=== PATIENT | female | born 1950 | race Caucasian/White ===

== ENCOUNTER 2016-12-01 09:06 | Emergency (ER) | payer MEDICARE, OTHER ==
--- NOTE | ~2016-12-01 | CT71 ---
[facility] A Service of [facility] & [facility] RADIOLOGY TEXT RESULTS PATIENT: ARIADNE CHAPPELL LOCATION: [facility] : 48 UNIT #: [id number] AGE: [address]: Maksim Omalley MD SEX: F ORDER DR: [id number] [facility] [address] [place], [place] [address] [id number] E MR#: [id number] #: [id number] NAME: ARIADNE CHAPPELL : 1950 SEX: F STUDY DATE/TIME: 12/01/2016 9:51 UNIT: [facility] ROOM: STUDY DESCRIPTION: CT Head Wo Contrast Attending Physician: Maksim Omalley M.D. Ordering Physician: Maksim Omalley M.D. Primary Care Physician: Raffi Holt M.D. MEDICAL IMAGING REPORT This report is preliminary unless electronic signature is present EXAM CT head, 12/01/2016. HISTORY No loss of consciousness. Laceration right top of head. Fell this a.m. Left knee pain. TECHNIQUE CT head performed skull base through vertex without intravenous contrast. This CT exam was performed with one or more of the following radiation dose reduction techniques: automatic exposure control, adjustment of mA and/or kV according to patient size, and iterative reconstruction. COMPARISON 11/07/2012 FINDINGS Brainstem remarkable. 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 No acute-appearing cerebellar abnormality. The cerebral hemispheres show no indication of acute hemorrhage or acute cortical ischemia. Encephalomalacic change in the posteromedial left temporal lobe and occipital lobe consistent with remote vascular insult. Similar appearance on prior study. Periventricular and deep white matter tract, probable sequelae of chronic microvascular ischemia. Focal area of encephalomalacic change superior aspect right putamen extending into the right watts radiata. No change. There is no clearly acute basal ganglia abnormality. The midline structures are nondisplaced. The ventricles, cisterns, and sulci show moderate generalized enlargement consistent with moderate generalized atrophy. Extensive cavernous carotid arterial calcifications. The intraorbital soft tissues show no acute abnormality. The visualized paranasal sinuses and mastoid air cells are clear. No fracture. Soft tissue laceration right anterior frontoparietal scalp. It [facility] A Service of [facility] & [facility] RADIOLOGY TEXT RESULTS PATIENT: ARIADNE CHAPPELL [id number] [birth year] UNIT #: [id number] AGE: [address]: Maksim Omalley MD SEX: F ORDER DR: does extend to the bone surface with a depth of about 8 mm. Overall length of the laceration unclear. No radiodense foreign body. There is some associated soft tissue swelling. IMPRESSION 1. No acute abnormality is seen in the brain. If the patient has ongoing neurologic symptoms, consider follow up imaging. 2. Moderate generalized atrophy. 3. 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 Localized area of chronic ischemic change superior right putamen extending into the right watts radiata. 4. Periventricular and deep white matter tract probable sequelae of chronic microvascular ischemia. 5. Cavernous carotid arterial calcifications. 6. No fracture. 7. Scalp laceration right anterior frontoparietal scalp. The laceration plane extends to the bone surface. Subcutaneous air along the laceration plane, but no radiodense foreign body. Dictated by... Dominick Matos M.D. THIS IS AN ELECTRONICALLY VERIFIED REPORT Dominick Matos M.D. at 12/02/2016 9:09 AM [place] TD: 12/01/2016 11:28 JOB #: [id number] MEDICAL IMAGING REPORT Page 1 of 1 COPY
--- NOTE | ~2016-12-01 | CR172 ---
[facility] A Service of [facility] & [facility] RADIOLOGY TEXT RESULTS PATIENT: ARIADNE CHAPPELL LOCATION: [facility] : 48 UNIT #: [id number] AGE: [address]: Maksim Omalley MD SEX: F ORDER DR: [id number] [facility] [address] [place], [place] [address] [id number] E MR#: [id number] #: [id number] NAME: ARIADNE CHAPPELL. : 1950 SEX: F STUDY DATE/TIME: 12/01/2016 9:00 UNIT: [facility] ROOM: STUDY DESCRIPTION: CR Knee 3 Views Lt Attending Physician: Maksim Omalley M.D. Ordering Physician: Maksim Omalley M.D. Primary Care Physician: Raffi Holt M.D. MEDICAL IMAGING REPORT This report is preliminary unless electronic signature is present EXAM Left knee series, 12/01/2016. HISTORY Trauma. Left knee frontal pain, bruising. Happened today. Patient fell. TECHNIQUE AP, lateral, and sunrise views of the left knee are presented. FINDINGS No fracture or traumatic malalignment seen. Marked degenerative change. Marked narrowing of the medial joint space compartment. Moderate narrowing of the lateral and patellofemoral joint space compartments. Prominent marginal osteophytes along the articular surfaces. Small suprapatellar joint effusion. No soft tissue defect, subcutaneous air, or radiodense foreign body. Extensive atherosclerotic arterial calcifications. Dictated by... Dominick Matos M.D. THIS IS AN ELECTRONICALLY VERIFIED REPORT Dominick Matos M.D. at 12/02/2016 9:09 AM JERONIMO/rg TD: 12/01/2016 10:16 JOB #: [id number] MEDICAL IMAGING REPORT Page 1 of 1 COPY
[~2016-12-01 09:06] MED LIST: ASPIRIN81 M1 PO; ASPIRIN81 M2 PO; CALAZIME P113 GM OIN EXT; GLIPIZIDE10 MG PO; GLUCOPHAGE500 M1 PO; GLUCOTROL XL PO; HYDRALAZINE HCL25 MG PO; HYDROCHLOROTH12.5 M1 PO; HYDROCHLOROTHIA25 MG PO; HYDROCORTISONE30 G2 EXT; KEFLEX500 M1 PO; KEFLEX500 M2 PO; KEFLEX500 MG PO; LEVAQUIN PO; LIPITOR80 MG PO; NORVASC10 MG PO; NYSTATIN1 EACH TOP; SIMVASTATIN40 MG PO; TOPROL XL PO; TOPROL XL100 MG PO; TRYPSIN COMPLEX60 GM TP; ZESTRIL10 MG PO; ZESTRIL40 MG PO; [UNRECOGNIZED DRUG - SUPPLY] IN
== END 2016-12-01 12:45 | disposition home or self-care (01) ==
LOC: CED 09:06
DX: S01.01XA Laceration without foreign body of scalp, initial encounter (principal); S80.02XA Contusion of left knee, initial encounter; S80.01XA Contusion of right knee, initial encounter; E11.9 Type 2 diabetes mellitus without complications; I11.0 Hypertensive heart disease with heart failure; I50.9 Heart failure, unspecified; Z86.73 Personal history of transient ischemic attack (TIA), and cerebral infarction without residual deficits; Z23 Encounter for immunization; Z88.0 Allergy status to penicillin; W01.0XXA Fall on same level from slipping, tripping and stumbling without subsequent striking against object, initial encounter; Y92.009 Unspecified place in unspecified non-institutional (private) residence as the place of occurrence of the external cause
CPT/HCPCS: 12001; 70450; 73562; 90471; 90715; 99284